=== PATIENT | female | born 1975 | race Caucasian/White ===

== ENCOUNTER 2017-05-16 14:23 | Emergency (ER) | payer MEDICARE, MEDICAID ==
[2017-05-16 14:23] VITALS: BMI 28.7
[2017-05-16 14:28] VITALS: RESP 18; O2SAT 98
--- NOTE | 2017-05-16 14:47 | ED PDOC ---
HPI: Abdomen Time Seen by Provider: 05/16/17 14:39 Chief Complaint (Nursing): Abdominal Pain Chief Complaint (Provider): abdominal pain, vomiting History Per: Patient Additional Complaint(s): 41 year old female presents to ED with RLQ abdominal pain associated with vomiting and diarrhea that started last night with no fever or chills. Patient cannot keep down anything including sips of water. She rates abdominal pain as 9/10. Patient denies any consumption of foods that could have caused stomach upset. No recent travel. Past Medical History Reviewed: Historical Data, Nursing Documentation, Vital Signs Vital Signs: Last Vital Signs Temp 98.1 F 05/16/17 14:25 Pulse 88 05/16/17 14:25 Resp 18 05/16/17 14:25 BP 114/62 05/16/17 14:25 Pulse Ox 98 05/16/17 17:15 - Medical History PMH: Anxiety, Bronchitis, Depression, Fractures, Gastritis, Hypercholesterolemia - Surgical History Surgical History: Endoscopy Other surgeries: right eye surgery, right breast surgery, tubal ligation, right foot surgery - Family History Family History: States: No Known Family Hx - Living Arrangements Living Arrangements: With Family - Social History Current smoker - smoking cessation education provided: Yes ("sometimes") Alcohol: Social Drugs: Denies - Home Medications Home Medications: Ambulatory Orders Medication Instructions Recorded Vitamin D 1,000 iu PO QD6 07/11/14 Ondansetron [Zofran] 4 mg PO Q6H PRN #30 tab 08/10/14 Ranitidine HCl [Zantac] 300 mg PO DAILY 03/11/17 Risperidone [Risperdal] 2 mg PO DAILY 03/11/17 traMADol/Acetaminophen [Ultracet 1 tab PO TID PRN #15 tab 03/11/17 37.5/325 mg] Ciprofloxacin [Cipro] 500 mg PO BID #14 tab 05/16/17 Dicyclomine [Bentyl] 10 mg PO QID PRN #15 cap 05/16/17 Metronidazole [Flagyl] 500 mg PO TID #21 tab 05/16/17 Ondansetron [Zofran Odt] 4 mg PO ASDIR PRN #10 odt 05/16/17 - Allergies Allergies/Adverse Reactions: Allergies Allergy/AdvReac Type Severity Reaction Status Date / Time No Known Allergies Allergy Verified 03/11/17 11:47 Review of Systems ROS Statement: Except As Marked, All Systems Reviewed And Found Negative Cardiovascular: Negative for: Chest Pain Respiratory: Negative for: Cough Gastrointestinal: Positive for: Nausea, Vomiting, Abdominal Pain, Diarrhea Genitourinary Female: Negative for: Dysuria, Hematuria, Vaginal Discharge, Vaginal Bleeding Physical Exam - Reviewed Nursing Documentation Reviewed: Yes Vital Signs Reviewed: Yes - Physical Exam Appears: Positive for: Well, Non-toxic, No Acute Distress Head Exam: Positive for: ATRAUMATIC Skin: Negative for: Rash Eye Exam: Positive for: Normal appearance Cardiovascular/Chest: Positive for: Regular Rate, Rhythm Respiratory: Positive for: Normal Breath Sounds Gastrointestinal/Abdominal: Positive for: Tenderness (moderate RLQ tenderness), Guarding, Rebound. Negative for: Distended Back: Negative for: L CVA Tenderness, R CVA Tenderness, Vertebral Tenderness Extremity: Positive for: Other (yasir wrap in place to right foot). Negative for : Pedal Edema Neurologic/Psych: Positive for: Alert, Oriented - Laboratory Results Result Diagrams: 05/16/17 15:00 05/16/17 15:00 Urine POC: Negative Urine dip results: Positive for: Blood (trace). Negative for: Leukocyte Esterase, Nitrate, Ketones, Glucose, Bilirubin, Protein - ECG O2 Sat by Pulse Oximetry: 98 Pulse Ox Interpretation: Normal - Other Rad CT abd and pelvis with IV contrast X-Ray: Read By Radiologist X-Ray Interpretation: see below Medical Decision Making Medical Decision Makin41 year old with vomiting and RLQ pain Plan: CBC CMP Lipase UA and culture CT abd and pelvis with IV contrast only IVF IV zofran IV toradol CT: IMPRESSION: Compatible with a mild to moderate right and transverse colitis in the correct clinical situation. Statistically, infectious or inflammatory. Ischemia cannot be excluded. No abscess. Normal appendix Possible tiny stones in a nondistended gallbladder. Punctate left nonobstructing renal urolithiasis Patient is aware of all diagnostic testing results. All questions answered. Patient states pain and nausea have resolved and she was able to tolerated juice and crackers without further emesis. Will d/c with rx cipro, flagyl, bentyl and zofran. Advised fluids, rest and bland diet. Patient was instructed to follow up with PMD in 2-3 days. Disposition - Clinical Impression Clinical Impression: Colitis - Patient ED Disposition Is Patient to be Admitted: No Counseled Patient/Family Regarding: Studies Performed, Diagnosis, Need For Followup, Rx Given - Disposition Referrals: Viviana Lopez MD [Family Provider] - Disposition: Routine/Home Disposition Time: 18:00 Condition: IMPROVED Additional Instructions: TAKE RX MEDS DIRECTED. FOLLOW BLAND DIET AND DRINK PLENTY OF FLUIDS FOLLOW UP IN 2-3 DAYS WITH PRIMARY CARE DOCTOR. Prescriptions: Ciprofloxacin [Cipro] 500 mg PO BID #14 tab Dicyclomine [Bentyl] 10 mg PO QID PRN #15 cap PRN Reason: Gi Distress Metronidazole [Flagyl] 500 mg PO TID #21 tab Ondansetron [Zofran Odt] 4 mg PO ASDIR PRN #10 odt PRN Reason: Nausea/Vomiting Instructions: Colitis (ED) Forms: [employer] (Filipino) Results - Lab Results Lab Results: 05/16/17 05/16/17 05/16/17 15:00 15:00 15:00 WBC 9.0 D RBC 4.29 Hgb 13.0 Hct 38.7 MCV 90.2 MCH 30.4 MCHC 33.7 RDW 13.7 Plt Count 250 MPV 8.1 Neut % (Auto) 83.9 H Lymph % (Auto) 12.1 L Perry % (Auto) 3.1 Eos % (Auto) 0.3 Baso % (Auto) 0.6 Neut # 7.6 H Lymph # 1.1 Perry # 0.3 Eos # 0.0 Baso # 0.1 Sodium 141 Potassium 4.0 Chloride 105 Carbon Dioxide 27 Anion Gap 13 BUN 14 Creatinine 0.7 Est GFR ( Amer) > 60 Est GFR (Non-Af Amer) > 60 Random Glucose 84 Calcium 9.5 Total Bilirubin 0.6 AST 26 ALT 42 Alkaline Phosphatase 73 Total Protein 8.1 Albumin 4.4 Globulin 3.6 Albumin/Globulin Ratio 1.2 Lipase 25 Urine Color Yellow Urine Clarity Cloudy Urine pH 8.0 Ur Specific Jenera 1.021 Urine Protein 100 Urine Glucose (UA) Neg Urine Ketones Negative Urine Blood Negative Urine Nitrate Negative Urine Bilirubin Negative Urine Urobilinogen 0.2-1.0 Ur Leukocyte Esterase Neg Urine RBC (Auto) 4 H Urine Microscopic WBC 1 Ur Squamous Epith Cells 12 H
[2017-05-16] MEDS ORDERED: Sodium Chloride 0.9% 1,000 ML IV STA (15:03)
[2017-05-16 15:23] LABS: BASO # 0.1 K/uL (0.0-0.2); BASO % 0.6 % (0.0-2.0); EOS % 0.3 % (0.0-4.0); HEMATOCRIT 38.7 % (34.0-47.0); LYMPH # 1.1 K/uL (1.0-4.3); LYMPH % 12.1 % (20.0-40.0); MEAN CELL VOLUME 90.2 fl (81.0-99.0); MEAN CORPUSCULAR HEMOGLOBIN 30.4 pg (27.0-31.0); MEAN CORPUSCULAR HGB CONC 33.7 g/dL (33.0-37.0); MEAN PLATELET VOLUME 8.1 fl (7.2-11.7); MONO # 0.3 K/uL (0.0-0.8); MONO % 3.1 % (0.0-10.0); NEUT # 7.6 K/uL (1.8-7.0); NEUT % 83.9 % (50.0-75.0); RED CELL DISTRIBUTION WIDTH 13.7 % (11.5-14.5)
[2017-05-16 15:26] LABS: RBC URINE 4 /hpf (0-3); URINE BILIRUBIN NEGATIVE (NEGATIVE); URINE BLOOD NEGATIVE (NEGATIVE); URINE COLOR YELLOW (YELLOW); URINE GLUCOSE (UA) NEG (Normal); URINE KETONE NEGATIVE (NEGATIVE); URINE LEUKOCYTE ESTERASE NEG Leu/uL (Negative); URINE PROTEIN 100 mg/dL (NEGATIVE); URINE UROBILINOGEN 0.2-1.0 mg/dL (0.2-1.0); WBC URINE 1 /hpf (0-5)
[2017-05-16 15:33] LABS: ALB/GLOB RATIO 1.2 (1.0-2.1); ALKALINE PHOSPHATASE 73 U/L (38-126); ALT/SGPT 42 U/L (9-52); AST/SGOT 26 U/L (14-36); BILIRUBIN,TOTAL 0.6 mg/dl (0.2-1.3); BLOOD UREA NITROGEN 14 mg/dl (7-17); CALCIUM 9.5 mg/dL (8.4-10.2); CARBON DIOXIDE 27 mmol/L (22-30); CHLORIDE 105 mmol/L (98-107); GFR AFRICAN-AMERICAN > 60; GLUCOSE,RANDOM 84 mg/dL (65-105); LIPASE 25 U/L (23-300); SODIUM 141 mmol/l (132-148); TOTAL PROTEIN 8.1 G/DL (6.3-8.2)
[2017-05-16] MEDS ORDERED: Iohexol 300 100 ML IJ ONE (16:22)
[2017-05-16] MEDS ORDERED: Sodium Chloride 0.9% 50 ML IV ONE (16:23)
[2017-05-16 18:14] VITALS: BP 124/76; PULSE 76; TEMP 96.7
--- NOTE | 2017-05-17 08:48 | CT ---
PROCEDURE: CT Abdomen and Pelvis with contrast HISTORY: rlq pain, vomiting COMPARISON: None. TECHNIQUE: Contrast dose: 100 cc of Omnipaque 350 Radiation dose: Total exam DLP = 779 mGy-cm. This CT exam was performed using one or more of the following dose reduction techniques: Automated exposure control, adjustment of the mA and/or kV according to patient size, and/or use of iterative reconstruction technique. FINDINGS: LOWER THORAX: Unremarkable. LIVER: Unremarkable. No gross lesion or ductal dilatation. GALLBLADDER AND BILE DUCTS: Unremarkable. PANCREAS: Unremarkable. No gross lesion or ductal dilatation. SPLEEN: Unremarkable. ADRENALS: Unremarkable. No mass. KIDNEYS AND URETERS: Unremarkable. No hydronephrosis. No solid mass. VASCULATURE: Unremarkable. No aortic aneurysm. BOWEL: Unremarkable. No obstruction. No gross mural thickening. APPENDIX: Normal appendix. PERITONEUM: Unremarkable. No free fluid. No free air. LYMPH NODES: Unremarkable. No enlarged lymph nodes. BLADDER: Unremarkable. REPRODUCTIVE: Unremarkable. BONES: No acute fracture. OTHER FINDINGS: None. IMPRESSION: Unremarkable contrast enhanced CT of the abdomen and pelvis.
== END 2017-05-16 18:15 | disposition home or self-care (01) ==
LOC: H.ER 14:23
DX: K52.9 Noninfective gastroenteritis and colitis, unspecified (principal); E78.00 Pure hypercholesterolemia, unspecified; F32.9 Major depressive disorder, single episode, unspecified; F41.9 Anxiety disorder, unspecified
CPT/HCPCS: 74177; 80053; 81003; 81025; 83690; 85025; 87086; 96374; 96375; 99282; J1885; J2405; J7040; Q9967

== ENCOUNTER 2017-10-23 11:37 | Emergency (ER) | payer MEDICARE, MEDICAID ==
[2017-10-23 11:37] VITALS: BMI 28.7
[2017-10-23] MEDS ORDERED: Sodium Chloride 0.9% 1,000 ML IV ONE (12:45)
--- NOTE | 2017-10-23 13:13 | ED PDOC ---
HPI: Abdomen Time Seen by Provider: 10/23/17 12:23 Chief Complaint (Nursing): Abdominal Pain Chief Complaint (Provider): Abdominal pain History Per: Patient History/Exam Limitations: no limitations Onset/Duration Of Symptoms: Days (x1), Intermittent Episodes Current Symptoms Are (Timing): Still Present Location Of Pain/Discomfort: RUQ Quality Of Discomfort: "Pain" Associated Symptoms: Nausea, Vomiting. denies: Fever, Chills, Diarrhea, Urinary Symptoms Exacerbating Factors: None Alleviating Factors: None Additional Complaint(s): [place] is a 42 year old female, with a past medical history of gastritis and hypercholesterolemia, who presents to the emergency department complaining of intermittent RUQ abdominal pain associated with nausea, and vomit onset since yesterday. She states nothing makes the pain feel better or worst. She denies any fever, chills, diarrhea or urinary symptoms. No further medical complaints. PMD: None provided. Past Medical History Reviewed: Historical Data, Nursing Documentation, Vital Signs Vital Signs: Last Vital Signs Temp 97.0 F L 10/23/17 11:41 Pulse 98 H 10/23/17 11:41 Resp 28 H 10/23/17 11:41 BP 162/98 H 10/23/17 11:41 Pulse Ox 99 10/23/17 15:02 - Medical History PMH: Anxiety, Bronchitis, Depression, Fractures, Gastritis, Hypercholesterolemia Denies: Asthma, Bipolar Disorder, Cardia Arrhythmia, CHF, Colonic Polyps, COPD, Crohn's Disease, Diverticulitis, Emphysema, Gall Bladder Disease, HTN, Mitral Valve Prolapse, Pancreatitis, Peripheral Edema, Pneumonia, Post Traumatic Stress Disorder, Pulmonary Embolism, Chronic Kidney Disease, Schizophrenia, Sleep Apnea - Surgical History Surgical History: Endoscopy Denies: Appendectomy, CABG, Carotid Endarterectomy, Cholecystectomy, Coronary Stent, Pacemaker, Tonsillectomy - Family History Family History: States: Unknown Family Hx - Social History Current smoker - smoking cessation education provided: No Alcohol: None Drugs: Denies - Home Medications Home Medications: Ambulatory Orders Medication Instructions Recorded Vitamin D 1,000 iu PO QD6 07/11/14 Ondansetron [Zofran] 4 mg PO Q6H PRN #30 tab 08/10/14 Ranitidine HCl [Zantac] 300 mg PO DAILY 03/11/17 Risperidone [Risperdal] 2 mg PO DAILY 03/11/17 traMADol/Acetaminophen [Ultracet 1 tab PO TID PRN #15 tab 03/11/17 37.5/325 mg] Ciprofloxacin [Cipro] 500 mg PO BID #14 tab 05/16/17 Dicyclomine [Bentyl] 10 mg PO QID PRN #15 cap 05/16/17 Metronidazole [Flagyl] 500 mg PO TID #21 tab 05/16/17 Ondansetron [Zofran Odt] 4 mg PO ASDIR PRN #10 odt 05/16/17 Naproxen 500 mg PO BID PRN #20 tab 10/23/17 - Allergies Allergies/Adverse Reactions: Allergies Allergy/AdvReac Type Severity Reaction Status Date / Time No Known Allergies Allergy Verified 03/11/17 11:47 Review of Systems ROS Statement: Except As Marked, All Systems Reviewed And Found Negative Constitutional: Negative for: Fever, Chills Gastrointestinal: Positive for: Nausea, Vomiting, Abdominal Pain (intermittent RUQ). Negative for: Diarrhea Genitourinary Female: Negative for: Dysuria Physical Exam - Reviewed Nursing Documentation Reviewed: Yes Vital Signs Reviewed: Yes - Physical Exam Appears: Positive for: Uncomfortable (in obvious pain) Head Exam: Positive for: ATRAUMATIC, NORMAL INSPECTION, NORMOCEPHALIC Skin: Positive for: Normal Color, Warm, Dry Eye Exam: Positive for: Normal appearance, EOMI, PERRL Neck: Positive for: Normal, Painless ROM, Supple Cardiovascular/Chest: Positive for: Regular Rate, Rhythm. Negative for: Murmur Respiratory: Positive for: Normal Breath Sounds. Negative for: Respiratory Distress Gastrointestinal/Abdominal: Positive for: Tenderness (mild RUQ) Back: Positive for: Normal Inspection. Negative for: L CVA Tenderness, R CVA Tenderness, Vertebral Tenderness Extremity: Positive for: Normal ROM. Negative for: Deformity, Swelling Neurologic/Psych: Positive for: Alert, Oriented - Laboratory Results Result Diagrams: 10/23/17 13:10 10/23/17 13:10 - ECG ECG: Positive for: Interpreted By Ca ECG Rhythm: Positive for: Normal QRS, Normal ST Segment, Sinus Rhythm. Negative for: ST/T Changes Interpretation Of ECG: rate of 63, no evidence of ischemia O2 Sat by Pulse Oximetry: 99 (RA) Pulse Ox Interpretation: Normal - Radiology X-Ray: Interpreted by Me X-Ray Interpretation: No Acute Disease - Progress Re-evaluation Time: 14:56 Condition: Improved Medical Decision Making Medical Decision Making: Initial Impression: abdominal pain Initial Plan: --Abd & Pelvis w/o PO or IV cont [CT] --EKG --Amylase --Comp Metabolic Panel --Lipase --Troponin I --CBC w/ differential --Chest one view [RAD] --Toradol 15 mg IVP --Morphine 2 mg IVP --Sodium chloride 1,000 ml IV 1,000 mls/hr --Zofran Inj 4 mg IVP --Urinalysis --Abdomen Limited (GB included) [US] --reevaluation 14:17 Chest X-Ray FINDINGS: LUNGS: No infiltrate identified bilaterally. PLEURA: No pneumothorax or pleural fluid seen. CARDIOVASCULAR: Normal. OSSEOUS STRUCTURES: No significant abnormalities. VISUALIZED UPPER ABDOMEN: Normal. OTHER FINDINGS: None. IMPRESSION: No acute cardiopulmonary disease appreciated. 14:40 --Repeated abdominal exam, showed no tenderness. --Pt feels better, Upon provider evaluation patient is medically stable, and requires no further treatment in the ED at this time. Patient will be discharged home. Counseling was provided and all questions were answered regarding diagnosis and need for follow up. There is agreement to discharge plan. Return if symptoms persist or worsen. Scribe Attestation: Documented by Norm Velarde, acting as a scribe for Edwardo Villa MD Provider Scribe Attestation: All medical record entries made by the Scribe were at my direction and personally dictated by me. I have reviewed the chart and agree that the record accurately reflects my personal performance of the history, physical exam, medical decision making, and the department course for this patient. I have also personally directed, reviewed, and agree with the discharge instructions and disposition. Disposition - Clinical Impression Clinical Impression: Biliary colic - Patient ED Disposition Is Patient to be Admitted: No Counseled Patient/Family Regarding: Studies Performed, Diagnosis, Need For Followup, Rx Given - Disposition Referrals: [facility] [Outside] (2 to 3 days) Dexter Ritchie MD [Staff Provider] - (2 to 3 days) Disposition: Routine/Home Disposition Time: 14:45 Condition: GOOD Prescriptions: Naproxen 500 mg PO BID PRN #20 tab PRN Reason: Pain, Moderate (4-7) Instructions: Biliary Colic (ED) Forms: [employer] (Sudanese)
[2017-10-23 13:17] LABS: BASO % 0.3 % (0.0-2.0); HEMOGLOBIN 13.7 g/dL (12.0-16.0); LYMPH % 9.1 % (20.0-40.0); MEAN CELL VOLUME 89.8 fl (81.0-99.0); MEAN CORPUSCULAR HEMOGLOBIN 30.7 pg (27.0-31.0); MEAN CORPUSCULAR HGB CONC 34.3 g/dL (33.0-37.0); MEAN PLATELET VOLUME 8.8 fl (7.2-11.7); MONO # 0.2 K/uL (0.0-0.8); MONO % 1.9 % (0.0-10.0); NEUT # 9.2 K/uL (1.8-7.0); NEUT % 88.7 % (50.0-75.0); PLATELET COUNT 296 K/uL (130-400); RBC 4.47 Mil/uL (3.80-5.20); RED CELL DISTRIBUTION WIDTH 14.7 % (11.5-14.5); WHITE BLOOD COUNT 10.4 K/uL (4.8-10.8)
[2017-10-23 13:29] LABS: ALBUMIN 5.1 g/dL (3.5-5.0); ALT/SGPT 50 U/L (9-52); AMYLASE 65 U/L (30-110); AST/SGOT 31 U/L (14-36); BLOOD UREA NITROGEN 19 mg/dl (7-17); CALCIUM 9.7 mg/dL (8.4-10.2); GFR AFRICAN-AMERICAN > 60; GFR NON-AFRICAN AMERICAN > 60; LIPASE 43 U/L (23-300)
[2017-10-23 13:33] LABS: SQUAMOUS EPITHIAL 36 /hpf (0-5); URINE AMORPHOUS SEDIMENT RARE /ul (<OCC); URINE BILIRUBIN NEGATIVE (NEGATIVE); URINE BLOOD NEGATIVE (NEGATIVE); URINE CLARITY CLOUDY (Clear); URINE COLOR YELLOW (YELLOW); URINE GLUCOSE (UA) NEG (Normal); URINE LEUKOCYTE ESTERASE NEG Leu/uL (Negative); URINE NITRATE NEGATIVE (NEGATIVE); URINE PROTEIN 100 mg/dL (NEGATIVE); URINE UROBILINOGEN 0.2-1.0 mg/dL (0.2-1.0)
[2017-10-23 13:46] LABS: ALB/GLOB RATIO 1.2 (1.0-2.1)
--- NOTE | 2017-10-23 14:18 | RAD ---
PROCEDURE: CHEST RADIOGRAPH, 1 VIEW HISTORY: abd pain COMPARISON: None available. FINDINGS: LUNGS: No infiltrate identified bilaterally. PLEURA: No pneumothorax or pleural fluid seen. CARDIOVASCULAR: Normal. OSSEOUS STRUCTURES: No significant abnormalities. VISUALIZED UPPER ABDOMEN: Normal. OTHER FINDINGS: None. IMPRESSION: No acute cardiopulmonary disease appreciated.
[2017-10-23 14:37] LABS: ANISOCYTOSIS SLIGHT; LARGE PLATELETS PRESENT; LYMPHOCYTE 9 % (20-50); MONOCYTE 2 % (0-10); NEUTROPHIL 89 % (42-75); PLATELET ESTIMATE NORMAL (NORMAL); TOTAL CELLS COUNTED 100
--- NOTE | 2017-10-23 14:40 | CT ---
PROCEDURE: CT Abdomen and Pelvis without Oral or IV contrast. HISTORY: r flank pain r/o stone COMPARISON: CT abdomen pelvis with contrast performed 05/16/17 TECHNIQUE: Contiguous axial images of the abdomen and pelvis. No oral or IV contrast administered. Coronal and Sagittal reformats generated and reviewed. Radiation dose: Total exam DLP = 770.40 MGy-cm. This CT exam was performed using one or more of the following dose reduction techniques: Automated exposure control, adjustment of the mA and/or kV according to patient size, and/or use of iterative reconstruction technique. FINDINGS: There is limited evaluation of the solid organs without the administration of IV contrast. LOWER THORAX: No visible consolidation, pleural effusion, or pneumothorax. LIVER: Unremarkable unenhanced appearance. GALLBLADDER AND BILE DUCTS: Unremarkable unenhanced appearance. PANCREAS: Unremarkable unenhanced appearance. SPLEEN: Unremarkable unenhanced appearance. ADRENALS: Unremarkable unenhanced appearance. KIDNEYS AND URETERS: No hydronephrosis or obstructing renal calculus. Punctate nonobstructing left renal calculus. BLADDER: The urinary bladder appears unremarkable. REPRODUCTIVE: Uterus is present. Prominence of the cervix. APPENDIX: The appendix appears within normal limits of caliber. No secondary signs of acute appendicitis. BOWEL: The stomach is nondistended. Lack of oral contrast limits evaluation for bowel pathology. The bowel loops appear within normal limits of caliber without evidence of intestinal obstruction. PERITONEUM: No significant free fluid. No definite free air. LYMPH NODES: No bulky lymphadenopathy identified. VASCULATURE: No aortic aneurysm. BONES: No acute osseous abnormality is detected. OTHER FINDINGS: None. IMPRESSION: Punctate nonobstructing left renal calculus. No hydronephrosis bilaterally. The appendix appears within normal limits of caliber. No secondary signs of acute appendicitis. Prominence of the cervix of uncertain significance. Recommend clinical correlation and follow-up including pelvic exam/Pap smear.
[2017-10-23 15:40] VITALS: BP 103/54; PULSE 66; RESP 16; TEMP 98.2; O2SAT 100
--- NOTE | 2017-10-23 16:11 | US ---
HISTORY: Right upper quadrant abdominal pain. Duration of symptoms: 24 hours. COMPARISON: 08/10/2014 TECHNIQUE: Sonographic evaluation of the right upper quadrant of the abdomen. FINDINGS: LIVER: Measures 16 cm in length. Patent portal vein. Portal venous flow: Hepatopetal. Unremarkeable echogenicity of the liver parenchyma. No mass. No intrahepatic bile duct dilatation. GALLBLADDER: Unremarkable. No gallstones. COMMON BILE DUCT: Measures 3.2 mm. No stones. No dilatation. PANCREAS: Unremarkable as visualized. No mass. No ductal dilatation. RIGHT KIDNEY: Measures 3.9 x 9.9 cm in length. Normal echogenicity. No calculus, mass, or hydronephrosis. AORTA: No aneurysmal dilatation. IVC: Unremarkable. OTHER FINDINGS: None . IMPRESSION: No significant or acute findings to account for/ related to the clinical presentation. No significant interval change compared to the prior examination(s).
--- NOTE | 2017-10-24 12:07 | CARD ---
APPROVED REPORT EKG Measurement Heart [id number] <Conclusion> Normal sinus rhythm Normal ECG
== END 2017-10-23 15:40 | disposition home or self-care (01) ==
LOC: H.ER 11:37
DX: K80.51 Calculus of bile duct without cholangitis or cholecystitis with obstruction (principal); E78.00 Pure hypercholesterolemia, unspecified; F32.9 Major depressive disorder, single episode, unspecified; F41.9 Anxiety disorder, unspecified
CPT/HCPCS: 71045; 74176; 76705; 80053; 81003; 81025; 82150; 83690; 84484; 85025; 87491; 87591; 93005; 96374; 96375; 96376; 99283; J1885; J2270; J2405; J7040

== ENCOUNTER 2017-10-29 04:46 | Emergency (ER) | payer MEDICARE, MEDICAID ==
[2017-10-29 04:46] VITALS: BMI 28.7
[2017-10-29 05:01] VITALS: O2SAT 100
[2017-10-29] MEDS ORDERED: Sodium Chloride 0.9% 1,000 ML IV STA (05:30)
--- NOTE | 2017-10-29 05:38 | ED PDOC ---
HPI: Back Time Seen by Provider: 10/29/17 05:14 Chief Complaint (Nursing): Back Pain Chief Complaint (Provider): flank pain History Per: Patient History/Exam Limitations: no limitations Onset/Duration Of Symptoms: Days (5) Current Symptoms Are (Timing): Still Present Quality Of Discomfort: Stabbing, "Pain" Exacerbating Factor(s): Turning, Movement Additional History Per: Patient Additional Complaint(s): 42 y/o female presents with severe left flank pain x 5 days. Patient states she was seen here and diagnosed with kidney stone, has appt to see Urologist 10/05 but presents today due to persistent pain, no relief provided with Naproxen. Patient states pain exacerbated by movement. Denies fever, nausea/ vomiting, chest pain, shortness of breath, palpitations, known injury, urinary symptoms. Past Medical History Reviewed: Historical Data, Nursing Documentation, Vital Signs Vital Signs: Last Vital Signs Temp 98.6 F 10/29/17 04:57 Pulse 76 10/29/17 04:57 Resp 17 10/29/17 04:57 BP 125/61 10/29/17 04:57 Pulse Ox 100 10/29/17 04:57 - Medical History PMH: Anxiety, Bronchitis, Depression, Fractures, Gastritis, Hypercholesterolemia Denies: Asthma, Bipolar Disorder, Cardia Arrhythmia, CHF, Colonic Polyps, COPD, Crohn's Disease, Diverticulitis, Emphysema, Gall Bladder Disease, HTN, Mitral Valve Prolapse, Pancreatitis, Peripheral Edema, Pneumonia, Post Traumatic Stress Disorder, Pulmonary Embolism, Chronic Kidney Disease, Schizophrenia, Sleep Apnea - Surgical History Surgical History: Endoscopy Denies: Appendectomy, CABG, Carotid Endarterectomy, Cholecystectomy, Coronary Stent, Pacemaker, Tonsillectomy - Family History Family History: States: Unknown Family Hx - Home Medications Home Medications: Ambulatory Orders Medication Instructions Recorded Vitamin D 1,000 iu PO QD6 07/11/14 Ondansetron [Zofran] 4 mg PO Q6H PRN #30 tab 08/10/14 Ranitidine HCl [Zantac] 300 mg PO DAILY 03/11/17 Risperidone [Risperdal] 2 mg PO DAILY 03/11/17 traMADol/Acetaminophen [Ultracet 1 tab PO TID PRN #15 tab 03/11/17 37.5/325 mg] Ciprofloxacin [Cipro] 500 mg PO BID #14 tab 05/16/17 Dicyclomine [Bentyl] 10 mg PO QID PRN #15 cap 05/16/17 Metronidazole [Flagyl] 500 mg PO TID #21 tab 05/16/17 Ondansetron [Zofran Odt] 4 mg PO ASDIR PRN #10 odt 05/16/17 Naproxen 500 mg PO BID PRN #20 tab 10/23/17 - Allergies Allergies/Adverse Reactions: Allergies Allergy/AdvReac Type Severity Reaction Status Date / Time No Known Allergies Allergy Verified 10/29/17 05:01 Review of Systems ROS Statement: Except As Marked, All Systems Reviewed And Found Negative Gastrointestinal: Positive for: Abdominal Pain Musculoskeletal: Positive for: Back Pain Physical Exam - Reviewed Nursing Documentation Reviewed: Yes Vital Signs Reviewed: Yes - Physical Exam Appears: Positive for: Well, Non-toxic, In Acute Distress (crying) Head Exam: Positive for: ATRAUMATIC, NORMAL INSPECTION, NORMOCEPHALIC Skin: Positive for: Normal Color Eye Exam: Positive for: Normal appearance ENT: Positive for: Normal ENT Inspection Cardiovascular/Chest: Positive for: Regular Rate, Rhythm Respiratory: Positive for: Normal Breath Sounds Gastrointestinal/Abdominal: Positive for: Bowel Sounds, Soft, Tenderness (LUQ, LLQ, left flank) Back: Positive for: Muscle Spasm (left lspine paraspinal tenderness). Negative for: L CVA Tenderness, R CVA Tenderness Extremity: Positive for: Normal ROM Neurologic/Psych: Positive for: Alert, Oriented - ECG O2 Sat by Pulse Oximetry: 100 - Progress ED Course And Treament: labs, urine, IV fluids, IV toradol, abd/pelvis CT Disposition - Clinical Impression Clinical Impression: Abdominal pain, Back pain - Patient ED Disposition Is Patient to be Admitted: No - Disposition Referrals: Elizabeth Olivera PA-C [Primary Care Provider] - Disposition: Transfer of Care Disposition Time: 06:02 Condition: STABLE Forms: [employer] (Congolese) Patient Signed Over To: Roel Wlison Handoff Comments: pending labs, CT
[2017-10-29] MEDS ORDERED: Iohexol 240 (50 ml) PO ONE (06:00)
--- NOTE | 2017-10-29 06:16 | ED PDOC ---
- ECG O2 Sat by Pulse Oximetry: 100 Medical Decision Making Medical Decision Making: Time: 06:00 --Patient signed over to me by Sonya العراقي PA-C pending CT and reassessment. Time: 07:00 --Patient signed over to Dr. Martinez pending CT and reassessment. Scribe Attestation: Documented by Willy Lindo, acting as a scribe for Roel Wilson MD. Provider Scribe Attestation: All medical record entries made by the Scribe were at my direction and personally dictated by me. I have reviewed the chart and agree that the record accurately reflects my personal performance of the history, physical exam, medical decision making, and the department course for this patient. I have also personally directed, reviewed, and agree with the discharge instructions and disposition. Disposition - Clinical Impression Clinical Impression: Abdominal pain, Back pain - POA Present On Arrival: None - Disposition Referrals: Elizabeth Olivera PA-C [Primary Care Provider] - Disposition: Transfer of Care Disposition Time: 07:00 Condition: STABLE Forms: [employer] (Latvian) Patient Signed Over To: Rodrigo Martinez Handoff Comments: pending CT and reassessment
[2017-10-29] MEDS ORDERED: Morphine 4 MG/ML VIAL ONE (06:35)
--- NOTE | 2017-10-29 07:13 | ED PDOC ---
- Laboratory Results Result Diagrams: 10/29/17 05:50 10/29/17 05:50 - ECG O2 Sat by Pulse Oximetry: 100 (RA) Pulse Ox Interpretation: Normal - Progress Re-evaluation Time: 10:45 Condition: Re-examined, Improved Medical Decision Making Medical Decision Making: Time: 07:00 Patient is endorsed to me by Dr. Roel Wilson at this time. Pending CT scan and reevaluation. 9:07 CT ABDOMEN/PELVIS: FINDINGS: LOWER THORAX: Unremarkable. LIVER: Unremarkable. No gross lesion or ductal dilatation. GALLBLADDER AND BILE DUCTS: Unremarkable. PANCREAS: Unremarkable. No gross lesion or ductal dilatation. SPLEEN: Unremarkable. ADRENALS: Unremarkable. No mass. KIDNEYS AND URETERS: Punctate nonobstructive left renal calculus. No hydronephrosis. No solid mass. VASCULATURE: Unremarkable. No aortic aneurysm. BOWEL: Unremarkable. No obstruction. No gross mural thickening. APPENDIX: Normal appendix. PERITONEUM: Unremarkable. No free fluid. No free air. LYMPH NODES: Unremarkable. No enlarged lymph nodes. BLADDER: Unremarkable. REPRODUCTIVE: Prominent pelvic veins, left worse than right, with left gonadal vein measuring up to 13 millimeter. BONES: No acute fracture. OTHER FINDINGS: None. IMPRESSION: No acute abdominal pelvic pathology. Prominent pelvic veins, left worse than right, compatible with pelvic congestion syndrome. 9:41 Patient c/o lower back pain radiating to left leg. Hx of sciatica. Given flexeril PO. Discussed with patient results and discharge plan. Patient understands and agrees. Scribe Attestation: Documented by Sri Johnson, acting as a scribe for Rodrigo Martinez MD Provider Scribe Attestation: All medical record entries made by the Scribe were at my direction and personally dictated by me. I have reviewed the chart and agree that the record accurately reflects my personal performance of the history, physical exam, medical decision making, and the department course for this patient. I have also personally directed, reviewed, and agree with the discharge instructions and disposition. Disposition Doctor Will See Patient In The: Office Counseled Patient/Family Regarding: Studies Performed, Diagnosis, Need For Followup - Clinical Impression Clinical Impression: Abdominal pain, Back pain, Lumbar radiculopathy, Pelvic congestion - POA Present On Arrival: None - Disposition Referrals: Elizabeth Olivera PA-C [Primary Care Provider] - Disposition: Routine/Home Disposition Time: 10:45 Condition: GOOD Additional Instructions: Take your medications as instructed. Follow up with your PCP in 2-3 days. Prescriptions: Cyclobenzaprine [Cyclobenzaprine HCl] 10 mg PO TID #15 tab Instructions: Lumbar Radiculopathy (ED), Back Pain (ED)
[2017-10-29 07:36] LABS: BASO % 0.4 % (0.0-2.0); EOS # 0.1 K/uL (0.0-0.7); EOS % 1.5 % (0.0-4.0); HEMOGLOBIN 12.2 g/dL (12.0-16.0); LYMPH # 1.8 K/uL (1.0-4.3); LYMPH % 20.7 % (20.0-40.0); MEAN CELL VOLUME 91.1 fl (81.0-99.0); MEAN CORPUSCULAR HEMOGLOBIN 30.5 pg (27.0-31.0); MEAN CORPUSCULAR HGB CONC 33.5 g/dL (33.0-37.0); MEAN PLATELET VOLUME 8.8 fl (7.2-11.7); MONO # 0.6 K/uL (0.0-0.8); MONO % 7.1 % (0.0-10.0); NEUT # 6.1 K/uL (1.8-7.0); NEUT % 70.3 % (50.0-75.0); RED CELL DISTRIBUTION WIDTH 14.8 % (11.5-14.5); WHITE BLOOD COUNT 8.7 K/uL (4.8-10.8)
[2017-10-29 07:47] LABS: BLOOD UREA NITROGEN 13 mg/dl (7-17); CALCIUM 9.7 mg/dL (8.4-10.2); GFR AFRICAN-AMERICAN > 60; GFR NON-AFRICAN AMERICAN > 60
[2017-10-29 07:48] LABS: ALB/GLOB RATIO 1.1 (1.0-2.1); ALT/SGPT 49 U/L (9-52); AST/SGOT 34 U/L (14-36)
[2017-10-29] MEDS ORDERED: Sodium Chloride 0.9% 50 ML IV ONE (07:48)
[2017-10-29] MEDS ORDERED: Iohexol 300 100 ML IJ ONE (07:48)
[2017-10-29 07:59] VITALS: TEMP 98
[2017-10-29 08:01] LABS: BARBITURATES, UR NEGATIVE (NEGATIVE); BENZODIAZEPINES, UR NEGATIVE (NEGATIVE); OPIATES, UR NEGATIVE (NEGATIVE); PHENCYCLIDINE, UR NEGATIVE (NEGATIVE)
[2017-10-29 08:08] LABS: SQUAMOUS EPITHIAL 12 /hpf (0-5); URINE BACTERIA RARE (<OCC); URINE BILIRUBIN NEGATIVE (NEGATIVE); URINE BLOOD NEGATIVE (NEGATIVE); URINE CLARITY CLOUDY (Clear); URINE COLOR YELLOW (YELLOW); URINE GLUCOSE (UA) NEG (Normal); URINE LEUKOCYTE ESTERASE NEG Leu/uL (Negative); URINE NITRATE NEGATIVE (NEGATIVE); URINE PROTEIN NEGATIVE (NEGATIVE); URINE UROBILINOGEN 0.2-1.0 mg/dL (0.2-1.0)
--- NOTE | 2017-10-29 09:09 | CT ---
PROCEDURE: CT Abdomen and Pelvis with contrast HISTORY: left-sided abdomen/flank pain COMPARISON: CT scan of the abdomen pelvis dated 10/23/2017. TECHNIQUE: Contrast dose: 95 mL Omnipaque 300 Radiation dose: Total exam DLP = 718.2 mGy-cm. This CT exam was performed using one or more of the following dose reduction techniques: Automated exposure control, adjustment of the mA and/or kV according to patient size, and/or use of iterative reconstruction technique. FINDINGS: LOWER THORAX: Unremarkable. LIVER: Unremarkable. No gross lesion or ductal dilatation. GALLBLADDER AND BILE DUCTS: Unremarkable. PANCREAS: Unremarkable. No gross lesion or ductal dilatation. SPLEEN: Unremarkable. ADRENALS: Unremarkable. No mass. KIDNEYS AND URETERS: Punctate nonobstructive left renal calculus. No hydronephrosis. No solid mass. VASCULATURE: Unremarkable. No aortic aneurysm. BOWEL: Unremarkable. No obstruction. No gross mural thickening. APPENDIX: Normal appendix. PERITONEUM: Unremarkable. No free fluid. No free air. LYMPH NODES: Unremarkable. No enlarged lymph nodes. BLADDER: Unremarkable. REPRODUCTIVE: Prominent pelvic veins, left worse than right, with left gonadal vein measuring up to 13 millimeter. BONES: No acute fracture. OTHER FINDINGS: None. IMPRESSION: No acute abdominal pelvic pathology. Prominent pelvic veins, left worse than right, compatible with pelvic congestion syndrome. Findings conveyed to Dr. Martinez by Dr. Blanchard at 9:05 a.m. on 10/29/2017.
[2017-10-29 11:06] VITALS: BP 121/65; PULSE 75; RESP 14
== END 2017-10-29 11:01 | disposition home or self-care (01) ==
LOC: H.ER 04:46
DX: R10.9 Unspecified abdominal pain (principal); M54.5 Low back pain; M54.16 Radiculopathy, lumbar region; N20.0 Calculus of kidney; Z86.59 Personal history of other mental and behavioral disorders
CPT/HCPCS: 74177; 80053; 81003; 81025; 85025; 96361; 96374; 96375; 96376; 99284; G0480; J1885; J2270; J7040; Q9966; Q9967

== ENCOUNTER 2018-11-07 11:29 | Emergency (ER) | payer MEDICARE, MEDICAID ==
[2018-11-07 11:31] VITALS: BMI 32.1
[2018-11-07 11:33] VITALS: RESP 18
--- NOTE | 2018-11-07 11:55 | ED PDOC ---
HPI: CCC, URI, Sore Throat Time Seen by Provider: 11/07/18 11:36 Chief Complaint (Nursing): Flu-like Symptoms Chief Complaint (Provider): Cough History Per: Patient History/Exam Limitations: no limitations Additional Complaint(s): Pt. with cough, congestion, runny nose, vomiting but tolerates po liquid. Feels fever. Has weakness all over and body aches. No abd pain, chest pain, dyspnea. No neck pain, numbness, tingles. No dysuria. Past Medical History Reviewed: Nursing Documentation, Vital Signs Vital Signs: Last Vital Signs Temp 98.9 F 11/07/18 11:31 Pulse 99 H 11/07/18 11:31 Resp 18 11/07/18 11:31 BP 103/72 11/07/18 11:31 Pulse Ox 96 11/07/18 11:31 - Medical History PMH: Anxiety, Bronchitis, Depression, Fractures, Gastritis, Hypercholesterolemia, Kidney Stones Denies: Asthma, Bipolar Disorder, Cardia Arrhythmia, CHF, Colonic Polyps, COPD, Crohn's Disease, Diverticulitis, Emphysema, Gall Bladder Disease, HTN, Mitral Valve Prolapse, Pancreatitis, Peripheral Edema, Pneumonia, Post Traumatic Stress Disorder, Pulmonary Embolism, Chronic Kidney Disease, Schizophrenia, Sleep Apnea - Surgical History Surgical History: Endoscopy Denies: Appendectomy, CABG, Carotid Endarterectomy, Cholecystectomy, Coronary Stent, Pacemaker, Tonsillectomy - Family History Family History: States: Unknown Family Hx - Home Medications Home Medications: Ambulatory Orders Medication Instructions Recorded Vitamin D 1,000 iu PO QD6 07/11/14 Ondansetron [Zofran] 4 mg PO Q6H PRN #30 tab 08/10/14 Ranitidine HCl [Zantac] 300 mg PO DAILY 03/11/17 Risperidone [Risperdal] 2 mg PO DAILY 03/11/17 traMADol/Acetaminophen [Ultracet 1 tab PO TID PRN #15 tab 03/11/17 37.5/325 mg] Ciprofloxacin [Cipro] 500 mg PO BID #14 tab 05/16/17 Dicyclomine [Bentyl] 10 mg PO QID PRN #15 cap 05/16/17 Metronidazole [Flagyl] 500 mg PO TID #21 tab 05/16/17 Ondansetron [Zofran Odt] 4 mg PO ASDIR PRN #10 odt 05/16/17 Naproxen 500 mg PO BID PRN #20 tab 10/23/17 Cyclobenzaprine [Cyclobenzaprine 10 mg PO TID #15 tab 10/29/17 HCl] Amoxicillin 500 mg PO BID 7 Days tablet 11/07/18 Benzonatate [Tessalon Perles] 100 mg PO BID PRN 5 Days sgl 11/07/18 Ibuprofen [Motrin] 600 mg PO TID 7 Days tab 11/07/18 - Allergies Allergies/Adverse Reactions: Allergies Allergy/AdvReac Type Severity Reaction Status Date / Time No Known Allergies Allergy Verified 10/29/17 05:01 Review of Systems ROS Statement: Except As Marked, All Systems Reviewed And Found Negative Constitutional: Positive for: Fever, Weakness ENT: Positive for: Ear Pain, Nose Pain, Nose Discharge, Nose Congestion Cardiovascular: Negative for: Chest Pain, Palpitations, Edema Respiratory: Positive for: Cough. Negative for: Shortness of Breath Gastrointestinal: Positive for: Nausea, Vomiting. Negative for: Abdominal Pain, Constipation Genitourinary Female: Negative for: Dysuria Neurological: Positive for: Weakness. Negative for: Dizziness Physical Exam - Reviewed Nursing Documentation Reviewed: Yes Vital Signs Reviewed: Yes - Physical Exam Appears: Positive for: Non-toxic, No Acute Distress Head Exam: Positive for: ATRAUMATIC, NORMAL INSPECTION, NORMOCEPHALIC Skin: Positive for: Normal Color, Warm, DRY Eye Exam: Positive for: EOMI, Normal appearance, PERRL ENT: Positive for: TM Is/Are (R TM with no issues; L TM with mild erythema and fluid levels), Nasal Congestion Neck: Positive for: Normal, Painless ROM, Supple Cardiovascular/Chest: Positive for: Regular Rate, Rhythm Respiratory: Positive for: CNT, Normal Breath Sounds Gastrointestinal/Abdominal: Positive for: Normal Exam, Soft. Negative for: Tenderness Back: Positive for: Normal Inspection. Negative for: L CVA Tenderness, R CVA Tenderness Extremity: Positive for: Normal ROM. Negative for: Tenderness, Pedal Edema Neurologic/Psych: Positive for: Alert, log sorter II-XII, Oriented. Negative for: Motor/Sensory Deficits - ECG O2 Sat by Pulse Oximetry: 96 Disposition - Clinical Impression Clinical Impression: URI (upper respiratory infection), Otitis media - Patient ED Disposition Is Patient to be Admitted: No Counseled Patient/Family Regarding: Diagnosis, Need For Followup, Rx Given - Disposition Referrals: [facility] [Outside] - 11/08/18 Disposition: Routine/Home Disposition Time: 11:57 Condition: STABLE Additional Instructions: Return if not better in 3 days. Prescriptions: Amoxicillin 500 mg PO BID 7 Days tablet Benzonatate [Tessalon Perles] 100 mg PO BID PRN 5 Days sgl PRN Reason: Cough Ibuprofen [Motrin] 600 mg PO TID 7 Days tab Instructions: Ear Infections (Otitis Media), Viral Upper Respiratory Infection, Adult (DC) Forms: [facility] ED School/Work Excuse
[2018-11-07 12:59] VITALS: BP 116/77; PULSE 81; TEMP 98.8; O2SAT 100
== END 2018-11-07 13:00 | disposition home or self-care (01) ==
LOC: H.ER 11:29
DX: J06.9 Acute upper respiratory infection, unspecified (principal); H66.90 Otitis media, unspecified, unspecified ear; Z86.59 Personal history of other mental and behavioral disorders; Z87.442 Personal history of urinary calculi; E78.00 Pure hypercholesterolemia, unspecified

== ENCOUNTER 2019-01-22 07:11 | Emergency (ER) | payer MEDICARE, MEDICAID ==
[2019-01-22 07:31] VITALS: BP 119/65; PULSE 67; RESP 18; TEMP 97; O2SAT 98
[2019-01-22 07:32] VITALS: BMI 30.8
--- NOTE | 2019-01-22 09:29 | ED PDOC ---
HPI: Back Time Seen by Provider: 01/22/19 07:52 Chief Complaint (Nursing): Back Pain Chief Complaint (Provider): Back Pain History Per: Patient History/Exam Limitations: no limitations Onset/Duration Of Symptoms: Days (x2) Current Symptoms Are (Timing): Still Present Additional Complaint(s): Patient is a 43 y/o female with an extensive PMHx who presents to the ED for e valuation of right lower back pain onset two days ago. Patient states in the past she has pulled her muscle which elicited the same pain. Patient reports the pain radiates down to her right leg. Patient claims her pain is exacerbated on movement. Patient has been using heating pads and taking Motrin 600 with no relief. Of note, patent is currently on her period. PCP: Adelso Leger Past Medical History Reviewed: Historical Data, Nursing Documentation, Vital Signs Vital Signs: Last Vital Signs Temp 97 F L 01/22/19 07:30 Pulse 67 01/22/19 07:30 Resp 18 01/22/19 07:30 BP 119/65 01/22/19 07:30 Pulse Ox 98 01/22/19 07:30 - Medical History PMH: Anxiety, Bronchitis, Depression, Fractures, Gastritis, Hypercholesterolemia, Kidney Stones Denies: Asthma, Bipolar Disorder, Cardia Arrhythmia, CHF, Colonic Polyps, COPD, Crohn's Disease, Diverticulitis, Emphysema, Gall Bladder Disease, HTN, Mitral Valve Prolapse, Pancreatitis, Peripheral Edema, Pneumonia, Post Traumatic Stress Disorder, Pulmonary Embolism, Chronic Kidney Disease, Schizophrenia, Sleep Apnea - Surgical History Surgical History: Endoscopy Denies: Appendectomy, CABG, Carotid Endarterectomy, Cholecystectomy, Coronary Stent, Pacemaker, Tonsillectomy - Family History Family History: States: No Known Family Hx - Home Medications Home Medications: Ambulatory Orders Medication Instructions Recorded Ranitidine HCl [Zantac] 300 mg PO DAILY 03/11/17 Risperidone [Risperdal] 2 mg PO DAILY 03/11/17 traMADol/Acetaminophen [Ultracet 1 tab PO TID PRN #15 tab 03/11/17 37.5/325 mg] Ondansetron [Zofran Odt] 4 mg PO ASDIR PRN #10 odt 05/16/17 Naproxen 500 mg PO BID PRN #20 tab 10/23/17 Cyclobenzaprine [Cyclobenzaprine 10 mg PO TID #15 tab 10/29/17 HCl] Ibuprofen [Motrin] 600 mg PO TID 7 Days tab 11/07/18 Ondansetron ODT [Zofran ODT] 4 mg PO TID #12 odt 11/13/18 Cyclobenzaprine [Cyclobenzaprine 10 mg PO TID PRN #15 tab 01/22/19 HCl] Naproxen [Naprosyn] 500 mg PO BID PRN #15 tablet 01/22/19 - Allergies Allergies/Adverse Reactions: Allergies Allergy/AdvReac Type Severity Reaction Status Date / Time No Known Allergies Allergy Verified 11/13/18 16:13 Review of Systems ROS Statement: Except As Marked, All Systems Reviewed And Found Negative Musculoskeletal: Positive for: Back Pain (right lower), Leg Pain (right) Physical Exam - Reviewed Nursing Documentation Reviewed: Yes Vital Signs Reviewed: Yes - Physical Exam Appears: Positive for: Non-toxic, In Acute Distress (painful) Head Exam: Positive for: ATRAUMATIC, NORMAL INSPECTION, NORMOCEPHALIC Skin: Positive for: Normal Color, Warm, DRY Eye Exam: Positive for: EOMI, Normal appearance, PERRL Neck: Positive for: Normal, Painless ROM, Supple Cardiovascular/Chest: Positive for: Regular Rate, Rhythm. Negative for: Murmur Respiratory: Positive for: Normal Breath Sounds. Negative for: Respiratory Distress Gastrointestinal/Abdominal: Positive for: Normal Exam, Soft. Negative for: Tenderness Back: Positive for: Normal Inspection (straight leg raise less than 30 degrees), Other (right paraspinal tenderness). Negative for: L CVA Tenderness, R CVA Tenderness, Vertebral Tenderness Extremity: Positive for: Normal ROM. Negative for: Pedal Edema, Deformity Neurological/Psych: Positive for: Alert, Oriented (x3) - ECG O2 Sat by Pulse Oximetry: 98 (RA) Pulse Ox Interpretation: Normal - Progress Re-evaluation Time: 11:10 Condition: Improved Medical Decision Making Medical Decision Making: Time: 907 Impression: Right Lower Back Pain Plan: Lumbar Spine Complete [Rad] Flexeril 10 mg PO Toradol 30 mg IM Time: 954 Lumbar Spine FINDINGS: BONES: Stable normal curvature. Diminished disc height remains at L5-S1 indicating diminished disease here is also present at L3-4 once again as well. No fracture or spondylolisthesis identified. No destructive bony lesion identified. No spondylolysis in the interval. DISC SPACES: Unremarkable. OTHER FINDINGS: None. IMPRESSION: Multilevel degenerative disease, particularly at L3-4 and L5-S1, not significantly changed in the interval. No interval fracture or spondylolisthesis. No spondylolysis. Scribe Attestation: Documented by Emmett Smith, acting as a scribe for Emani Nix MD. Provider Scribe Attestation: All medical record entries made by the Scribe were at my direction and personally dictated by me. I have reviewed the chart and agree that the record accurately reflects my personal performance of the history, physical exam, medical decision making, and the department course for this patient. I have also personally directed, reviewed, and agree with the discharge instructions and disposition. Disposition - Clinical Impression Clinical Impression: Lumbar radiculopathy - Disposition Referrals: Adelso Leger MD [Primary Care Provider] - Disposition: Routine/Home Disposition Time: 11:10 Condition: IMPROVED Prescriptions: Cyclobenzaprine [Cyclobenzaprine HCl] 10 mg PO TID PRN #15 tab PRN Reason: Pain Naproxen [Naprosyn] 500 mg PO BID PRN #15 tablet PRN Reason: Pain, Moderate (4-7) Instructions: Radiculopathy Forms: [employer] ([place])
--- NOTE | 2019-01-22 09:59 | RAD ---
Date of service: 01/22/2019 PROCEDURE: Radiographs of the Lumbar Spine. HISTORY: R low back pain COMPARISON: Abdomen pelvis CT with contrast 10/29/2017. TECHNIQUE: 5 views obtained. FINDINGS: BONES: Stable normal curvature. Diminished disc height remains at L5-S1 indicating diminished disease here is also present at L3-4 once again as well. No fracture or spondylolisthesis identified. No destructive bony lesion identified. No spondylolysis in the interval. DISC SPACES: Unremarkable. OTHER FINDINGS: None. IMPRESSION: Multilevel degenerative disease, particularly at L3-4 and L5-S1, not significantly changed in the interval. No interval fracture or spondylolisthesis. No spondylolysis.
== END 2019-01-22 11:23 | disposition home or self-care (01) ==
LOC: SUPCPDRO 07:11 → H.ER 07:11
DX: M51.16 Intervertebral disc disorders with radiculopathy, lumbar region (principal)
CPT/HCPCS: 72114; 81025; 96372; 99283; J1885